=== PATIENT | female | born 1965 | race African-American/Black ===

== ENCOUNTER 2016-10-28 12:20 | Emergency (ER) | payer OTHER ==
[~2016-10-28] VITALS: Ht 165.1 cm; Wt 81.2 kg
[~2016-10-28 12:20] MED LIST: CELEXA20 MG PO; FLEXERIL PO; GARCINIA CAMBO1 EACH PO; IBUPROFEN 800800 MG PO; NORCO 5-325 TA1 EACH PO; PRENA1 SOFTGEL1 EACH PO; XANAX 0.5 MG0.5 MG PO; ZYRTEC10 MG PO
[2016-10-28] MEDS ORDERED: FLEXERIL PO (12:38)
[2016-10-28] MEDS ORDERED: ROBAXIN 750 MG750 M1 PO (12:44)
[2016-10-28 13:07] VITALS: BP 135/88
== END 2016-10-28 13:10 | disposition home or self-care (01) ==
LOC: ER 12:20
DX: G89.29 Other chronic pain (principal); M54.9 Dorsalgia, unspecified; M62.838 Other muscle spasm